=== PATIENT | female | born 1980 | race African-American/Black ===

== ENCOUNTER 2018-11-24 21:21 | Emergency (ER) | payer OTHER ==
[~2018-11-24] VITALS: Ht 172.7 cm; Wt 91.6 kg
[~2018-11-24 21:21] MED LIST: AMETHIA LO TAB1 EACH PO; LORATADINE-D 21 EAC1 PO; NAPROSYN500 MG PO; NORFLEX100 MG PO; PAXIL10 MG; ULTRAM 50MG TAB50 MG PO
[2018-11-24 21:23] VITALS: BP 141/102
== END 2018-11-24 22:25 | disposition home or self-care (01) ==
LOC: ER 21:21
DX: M25.562 Pain in left knee (principal); Z88.0 Allergy status to penicillin; Z98.51 Tubal ligation status; Z98.890 Other specified postprocedural states; V49.59XA Passenger injured in collision with other motor vehicles in traffic accident, initial encounter; Y93.89 Activity, other specified; Y92.413 State road as the place of occurrence of the external cause; Y99.9 Unspecified external cause status

== ENCOUNTER → 2019-05-29 | Outpatient (CLI) | payer OTHER | LOC: BC 08:40 | DX: R92.2 Inconclusive mammogram (principal); Z80.3 Family history of malignant neoplasm of breast ==

== ENCOUNTER 2019-07-27 22:01 | Emergency (ER) | payer OTHER ==
[~2019-07-27] VITALS: Ht 172.7 cm; Wt 102.1 kg
[2019-07-27 23:18] LABS: ANION GAP 11 mmol/L (7-16); BUN 10 mg/dL (7-18); CALCIUM 8.3 mg/dL (8.5-10.1); CHLORIDE 106 mmol/L (98-107); CO2 21 mmol/L (21-32); CREATININE 0.8 mg/dL (0.6-1.0); GLUCOSE 100 mg/dL (74-106); POTASSIUM 4.3 mmol/L (3.5-5.1); SODIUM 138 mmol/L (136-145)
[2019-07-27] MEDS ORDERED: OMEPRAZOLE40 MG PO (23:19)
[2019-07-27] MEDS ORDERED: PRINIVIL20 M1 PO (23:20)
[2019-07-27] MEDS ORDERED: JUNEL FE 1.5-31 EACH PO (23:22)
[2019-07-27] MEDS ORDERED: ALPRAZOLAM 0.50.5 M1 PO (23:23)
[2019-07-27] MEDS ORDERED: SINGULAIR 10 MG10 MG PO (23:23)
[2019-07-27] MEDS ORDERED: INTERMEZZO3.5 MG PO (23:24)
[2019-07-27 23:29] LABS: ALBUMIN 3.1 g/dL (3.4-5.0); SGOT 22 U/L (15-37); SGPT 13 U/L (30-65); TOTAL BILIRUBIN 0.1 mg/dL (<0.1-1.0); TROPONIN-I <0.06 ng/mL (<0.06)
[2019-07-28 00:11] LABS: ABSOLUTE NEUTROPHILS 7.4 thou/uL (1.4-8.2); BASOPHILS 1.3 % (0.0-2.0); EOSINOPHILS 1.8 % (0.0-3.0); HEMATOCRIT 41.5 % (37.0-47.0); HEMOGLOBIN 13.3 gm/dL (12.0-15.0); LYMPHOCYTES 29.6 % (24.0-44.0); MCH 28.8 pg (26.0-34.0); MCHC 32.1 g/dL (28.0-37.0); MCV 89.7 fL (80.0-100.0); MONOCYTES 8.4 % (1.0-8.0); PLATELET COUNT 243 thou/uL (150-400); POLYS 58.9 % (36.0-66.0); RBC 4.62 mil/uL (4.20-5.00); RDW 13.4 % (10.5-14.5); WBC 12.6 thou/uL (4.0-11.0)
[2019-07-28 00:19] LABS: APTT 30.2 Seconds (24.5-32.8); INR 1.1; PROTIME 11.4 Seconds (9.3-11.4)
[2019-07-28] MEDS ORDERED: VENTOLIN HFA 1818 GM INH (00:55)
[2019-07-28 01:04] VITALS: BP 158/94
--- NOTE | 2019-07-28 07:50 | EKG ---
[facility] [place] [address] ELECTROCARDIOGRAM REPORT Name: RONDA SCHROEDER Room #: DEP [facility].#: [id number] Admission: 07/27/19 Attend Phys: Discharge: 07/28/19 Date of : 84 Report #: [id number] THIS REPORT FOR: cc: Criselda Huerta MD, Nora P. MD Lundgren,Nav Bello MD [facility] THIS REPORT FOR: //name// [facility] ED Test Date: 2019-07-27 Test Time: 22:17:47 Pat Name: RONDA SCHROEDER Department: Room: Gender: Mail Agent: : 1980 Requested By: Eduar Johnston Order Number: [id number] MD: Nav Kelly Measurements Intervals [place] Rate: 97 P: -8 SD: 166 QRS: 2 QRSD: 88 T: 5 QT: 348 QTc: 442 Interpretive Statements Sinus rhythm Normal tracing No previous ECG available for comparison Electronically Signed On 07-28-2019 7:48:49 CDT by Nav Kelly [email or web address] <ELECTRONICALLY SIGNED> By: Nav Kelly MD, [facility] 07/28/19 0748 16 16 Nav Kelly MD, [facility] /EPI
== END 2019-07-28 01:14 | disposition home or self-care (01) ==
LOC: ER 22:01
PROVIDERS: Emergency Medicine
DX: J06.9 Acute upper respiratory infection, unspecified (principal); Z79.899 Other long term (current) drug therapy; Z88.0 Allergy status to penicillin

== ENCOUNTER 2020-03-01 18:06 | Emergency (ER) | payer OTHER ==
[~2020-03-01] VITALS: Ht 170.2 cm; Wt 92.5 kg
[~2020-03-01 18:06] MED LIST changes: +ALPRAZOLAM 0.50.5 M1 PO; +INTERMEZZO3.5 MG PO; +JUNEL FE 1.5-31 EACH PO; +OMEPRAZOLE40 MG PO; +PRINIVIL20 M1 PO; +SINGULAIR 10 MG10 MG PO; +VENTOLIN HFA 1818 GM INH
[2020-03-01 20:48] VITALS: BP 129/91
== END 2020-03-01 21:40 | disposition home or self-care (01) ==
LOC: ER 18:06
DX: S09.90XA Unspecified injury of head, initial encounter (principal); Z79.899 Other long term (current) drug therapy; Z88.0 Allergy status to penicillin; V49.9XXA Car occupant (driver) (passenger) injured in unspecified traffic accident, initial encounter; Y93.89 Activity, other specified; Y92.89 Other specified places as the place of occurrence of the external cause; Y99.8 Other external cause status

== ENCOUNTER 2020-08-03 22:54 | Emergency (ER) | payer OTHER ==
[~2020-08-03] VITALS: Ht 170.2 cm; Wt 89.4 kg
[2020-08-03 22:58] VITALS: BP 162/90
[2020-08-03] MEDS ORDERED: AZITHROMYCIN 2250 MG PO (23:33)
[2020-08-03] MEDS ORDERED: DIFLUCAN150 MG PO (23:33)
[2020-08-03] MEDS ORDERED: CLEOCIN HCL300 MG PO (23:33)
[2020-08-03 23:46] LABS: URINE BILIRUBIN NEGATIVE (Negative); URINE BLOOD TRACE (Negative); URINE CLARITY CLEAR; URINE COLOR YELLOW; URINE GLUCOSE-RANDOM* NEGATIVE (Negative); URINE KETONES NEGATIVE (Negative); URINE LEUKOCYTES-REFLEX NEGATIVE (Negative); URINE NITRITE-REFLEX NEGATIVE (Negative); URINE PROTEIN (DIPSTICK) TRACE (Negative); URINE SPECIFIC GRAVITY >= 1.030 (1.005-1.035)
== END 2020-08-03 23:50 | disposition home or self-care (01) ==
LOC: ER 22:54
PROVIDERS: Emergency Medicine
DX: N76.0 Acute vaginitis (principal); Z88.0 Allergy status to penicillin; Z98.51 Tubal ligation status; Z79.899 Other long term (current) drug therapy